=== PATIENT | male | born 1965 | race Caucasian/White ===

== ENCOUNTER 2020-09-05 16:30 | Inpatient (IN) ==
[2020-09-05 16:59] LABS: Bilirubin,Urine Negative (Negative); Blood,Urine Negative (Negative); Clarity,Urine Clear (Clear); Color,Urine Yellow (Yellow); Glucose,Urine (UA) Normal (Normal); Ketones,Urine Negative (Negative); Leukocyte Esterase,Urine Negative (Negative); Nitrite,Urine Negative (Negative); PH,Urine 5.5 pH Units (5.0-8.0); Protein,Urine Trace mg/dL (Neg-Trace); Specific Gravity,Urine > 1.030 (1.010-1.025); Urobilinogen,Urine Normal (Normal)
[2020-09-05 17:18] LABS: Amphetamine Screen,Urine Negative ng/mL (Cutoff=1000); Barbiturate Screen,Urine Negative ng/mL (Cutoff=200); Benzodiazepines Screen,Urine Negative ng/mL (Cutoff=200); Cannabinoid Screen,Urine Positive ng/mL (Cutoff = 50); Cocaine Screen,Urine Negative ng/mL (Cutoff= 300); Opiate Screen,Urine Negative ng/mL (Cutoff=300); Phencyclidine Screen,Urine Negative ng/mL (Cutoff=25)
[2020-09-05] MEDS ORDERED: Ondansetron ODT 4 MG TAB.RAPDIS SL ONE (17:19)
[2020-09-05] MEDS ORDERED: Ondansetron ODT 4 MG TAB.RAPDIS ONE (17:50)
[2020-09-05] MEDS ORDERED: Lidocaine 1% 20 ML MDV INFILT ONE (18:58)
[2020-09-05] MEDS ORDERED: Lidocaine -MPF 1% 2 ML VIAL INFILT STA (19:01)
[2020-09-05 19:37] LABS: Basophils % 0.6 %; Eosinophils % 1.6 %; Mean Corpuscular Hemoglobin 30.3 pg (28.0-33.3); Red Cell Distribution Width 14.2 % (11.5-14.5)
[2020-09-05 19:39] LABS: Basophils # 0.1 K/mcL (0.0-0.2); Eosinophils # 0.1 K/mcL (0.0-0.6); Hematocrit 48.9 % (37.5-50.1); Immature Granulocytes % 0.1 % (0-4); Immature Platelets 2.4 % (1.1-6.1); Lymphocytes # 2.8 K/mcL (0.6-4.6); Lymphocytes % 30.9 %; Mean Corpuscular HGB Conc 32.7 g/dL (31.6-35.5); Mean Corpuscular Volume 92.6 fL (83.0-100.0); Mean Platelet Volume 9.7 fL (9.4-12.4); Monocytes # 0.7 K/mcL (0.0-1.3); Monocytes % 7.8 %; Neutrophils # 5.3 K/mcL (1.6-8.9); Platelet Count 203 K/mcL (140-400); Red Blood Count 5.28 M/mcL (4.19-5.50); White Blood Count 8.9 K/mcL (4.3-11.1)
[2020-09-05 20:01] LABS: Platelet Estimate Normal (Normal)
[2020-09-05 20:59] LABS: BUN/Creatinine Ratio 27 (6-26); Blood Urea Nitrogen 16 mg/dL (6-20); Calcium 9.1 mg/dL (8.6-10.3); Carbon Dioxide 19 mEq/L (23-29); Chloride 103 mEq/L (98-107); Glucose 118 mg/dL (70-105); Osmolality,Calculated 280 (280-300); Potassium 3.9 mEq/L (3.5-5.1); Sodium 134 mEq/L (136-145); Thyroid Stimulating Hormone 0.967 mcIU/mL (0.340-5.600); eGFR For African Americans > 60 (> 60); eGFR For Non-African Americans > 60 (> 60)
[2020-09-05 21:54] LABS: Acetaminophen < 10 mcg/mL (10-20); Alanine Aminotransferase 31 Units/L (7-52); Albumin 3.9 g/dL (3.5-5.7); Alkaline Phosphatase 113 Units/L (34-104); Aspartate Amino Transferase 18 Units/L (13-39); Bilirubin,Direct 0.1 mg/dL (0.0-0.2); Bilirubin,Indirect 0.4 mg/dL (0.0-1.0); Bilirubin,Total 0.5 mg/dL (0.3-1.0); Ethanol < 10 mg/dL (Less than 10); Globulin 4.1 g/dL (2.4-3.5); Salicylate < 2.5 mg/dL (15.0-30.0)
[2020-09-06] MEDS ORDERED: Haloperidol Lactate 5 MG/ML VIAL IM PRN (00:08)
[2020-09-06] MEDS ORDERED: *HR* LORazepam 2 MG/ML VIAL IM PRN (00:08)
[2020-09-06] MEDS ORDERED: *HR* LORazepam 1 MG TABLET PO PRN (00:08)
[2020-09-06] MEDS ORDERED: Mag Hydrox/Al Hydrox/Simeth 30 ML UDC PO PRN (00:08)
[2020-09-06] MEDS ORDERED: haloperidoL 5 MG TABLET PO PRN (00:08)
[2020-09-06] MEDS ORDERED: MOM Conc 10 ML UD.LIQ PO PRN (00:08)
[2020-09-06] MEDS: traZODone 50 MG TABLET PO SCH (00:59)
[2020-09-06] MEDS: risperiDONE 1 MG TABLET PO SCH ×2 (01:00→08:59)
[2020-09-06] MEDS: Gabapentin 400 MG CAPSULE PO SCH ×3 (01:00→15:00)
[2020-09-06] MEDS: Nicotine 21 MG PATCH.TD24 TD SCH ×2 (01:04→09:00)
[2020-09-06] MEDS: QUEtiapine Fumarate 100 MG TABLET PO SCH (11:09)
[2020-09-06] MEDS ORDERED: QUEtiapine Fumarate 100 MG TABLET PO SCH (21:00)
[2020-09-07] MEDS: Gabapentin 400 MG CAPSULE PO SCH ×2 (00:49→11:28)
[2020-09-07] MEDS: traZODone 50 MG TABLET PO SCH ×2 (04:48→21:04)
[2020-09-07] MEDS: QUEtiapine Fumarate 100 MG TABLET PO SCH ×2 (11:28→21:04)
[2020-09-07] MEDS: Nicotine 21 MG PATCH.TD24 TD SCH (12:00)
[2020-09-07] MEDS: *HR* Buprenorphine HCl 8 MG TAB.SUBL SL SCH (12:01)
[2020-09-07] MEDS ORDERED: *HR* Buprenorphine HCl 8 MG TAB.SUBL SL SCH (15:00)
[2020-09-07] MEDS: Gabapentin 300 MG CAPSULE PO SCH ×2 (15:13→21:04)
[2020-09-08] MEDS: Gabapentin 300 MG CAPSULE PO SCH ×3 (08:46→21:05)
[2020-09-08] MEDS: QUEtiapine Fumarate 100 MG TABLET PO SCH (08:46)
[2020-09-08] MEDS: *HR* Buprenorphine HCl 8 MG TAB.SUBL SL SCH (08:47)
[2020-09-08] MEDS: Nicotine 21 MG PATCH.TD24 TD SCH (09:51)
[2020-09-08] MEDS ORDERED: QUEtiapine Fumarate 100 MG TABLET PO ONE (20:56)
[2020-09-08] MEDS ORDERED: QUEtiapine Fumarate 100 MG TABLET PO SCH (21:00)
[2020-09-08] MEDS: traZODone 50 MG TABLET PO SCH (21:05)
[2020-09-09] MEDS ORDERED: QUEtiapine Fumarate 100 MG TABLET PO SCH (09:00)
[2020-09-09] MEDS: *HR* Buprenorphine HCl 8 MG TAB.SUBL SL SCH (09:14)
[2020-09-09] MEDS: Gabapentin 300 MG CAPSULE PO SCH (09:16)
[2020-09-09] MEDS: Nicotine 21 MG PATCH.TD24 TD SCH (09:31)
[2020-09-09] MEDS ORDERED: *HR* Buprenorphine HCl 8 MG TAB.SUBL SL SCH (10:36)
[2020-09-09 12:06] LABS: Mean Platelet Volume 10.2 fL (9.4-12.4); Red Cell Distribution Width 13.5 % (11.5-14.5)
[2020-09-09 12:08] LABS: Basophils # 0.1 K/mcL (0.0-0.2); Eosinophils # 0.2 K/mcL (0.0-0.6); Eosinophils % 3.1 %; Hematocrit 47.1 % (37.5-50.1); Hemoglobin 16.1 g/dL (12.9-16.9); Immature Granulocytes % 0.7 % (0-4); Immature Platelets 4.1 % (1.1-6.1); Lymphocytes # 2.6 K/mcL (0.6-4.6); Mean Corpuscular HGB Conc 34.2 g/dL (31.6-35.5); Mean Corpuscular Hemoglobin 30.2 pg (28.0-33.3); Mean Corpuscular Volume 88.4 fL (83.0-100.0); Monocytes # 0.8 K/mcL (0.0-1.3); Monocytes % 11.3 %; Neutrophils # 3.3 K/mcL (1.6-8.9); Platelet Count 190 K/mcL (140-400); Red Blood Count 5.33 M/mcL (4.19-5.50); Segmented Neutrophils % 46.9 %
[2020-09-09 12:14] LABS: Platelet Estimate Normal (Normal)
[2020-09-09 12:50] LABS: Alanine Aminotransferase 26 Units/L (7-52); Albumin 3.5 g/dL (3.5-5.7); Albumin/Globulin Ratio 0.8 (1.1-2.2); Alkaline Phosphatase 109 Units/L (34-104); Aspartate Amino Transferase 26 Units/L (13-39); BUN/Creatinine Ratio 26 (6-26); Bilirubin,Total 0.4 mg/dL (0.3-1.0); Blood Urea Nitrogen 20 mg/dL (6-20); Calcium 9.3 mg/dL (8.6-10.3); Carbon Dioxide 24 mEq/L (23-29); Chloride 104 mEq/L (98-107); Globulin 4.4 g/dL (2.4-3.5); Glucose 111 mg/dL (70-105); Osmolality,Calculated 283 (280-300); Potassium 4.8 mEq/L (3.5-5.1); Sodium 135 mEq/L (136-145); Thyroid Stimulating Hormone 0.455 mcIU/mL (0.340-5.600); Total Protein 7.9 g/dL (6.4-8.9); eGFR For African Americans > 60 (> 60); eGFR For Non-African Americans > 60 (> 60)
[2020-09-09] MEDS: *HR* Buprenorphine HCl 2 MG SUBLINGUAL TABLET SL SCH (13:33)
[2020-09-09] MEDS: ARIPiprazole 5 MG TABLET PO SCH (20:55)
[2020-09-09] MEDS: traZODone 50 MG TABLET PO SCH (20:55)
[2020-09-10] MEDS: Nicotine 21 MG PATCH.TD24 TD SCH (11:00)
[2020-09-10] MEDS: *HR* Buprenorphine HCl 2 MG SUBLINGUAL TABLET SL SCH ×2 (14:08→16:04)
[2020-09-10] MEDS: ARIPiprazole 5 MG TABLET PO SCH (21:14)
[2020-09-10] MEDS: traZODone 50 MG TABLET PO SCH (21:14)
[2020-09-11] MEDS: *HR* Buprenorphine HCl 8 MG TAB.SUBL SL SCH (08:59)
[2020-09-11] MEDS: Nicotine 21 MG PATCH.TD24 TD SCH (08:59)
[2020-09-11] MEDS: hydrOXYzine pamoate 25 MG CAPSULE PO PRN (14:05)
[2020-09-11] MEDS: *HR* Buprenorphine HCl 2 MG SUBLINGUAL TABLET SL SCH (16:05)
[2020-09-11] MEDS: traZODone 50 MG TABLET PO SCH (20:24)
[2020-09-11] MEDS: ARIPiprazole 10 MG TABLET PO SCH (20:24)
[2020-09-12] MEDS: Acetaminophen 325 MG TABLET PO PRN ×2 (05:15→14:04)
[2020-09-12] MEDS: *HR* Buprenorphine HCl 8 MG TAB.SUBL SL SCH (11:20)
[2020-09-12] MEDS: Nicotine 21 MG PATCH.TD24 TD SCH (11:20)
[2020-09-12] MEDS: hydrOXYzine pamoate 25 MG CAPSULE PO PRN (14:47)
[2020-09-12] MEDS: *HR* Buprenorphine HCl 2 MG SUBLINGUAL TABLET SL SCH (16:02)
[2020-09-12] MEDS: ARIPiprazole 10 MG TABLET PO SCH (20:38)
[2020-09-12] MEDS: traZODone 50 MG TABLET PO SCH (20:38)
[2020-09-13] MEDS: hydrOXYzine pamoate 25 MG CAPSULE PO PRN ×2 (08:07→16:34)
[2020-09-13] MEDS: *HR* Buprenorphine HCl 8 MG TAB.SUBL SL SCH (08:41)
[2020-09-13] MEDS: Nicotine 21 MG PATCH.TD24 TD SCH (09:37)
[2020-09-13] MEDS: *HR* Buprenorphine HCl 2 MG SUBLINGUAL TABLET SL SCH (16:09)
[2020-09-13] MEDS: risperiDONE 1 MG TABLET PO SCH (20:50)
[2020-09-13] MEDS: traZODone 50 MG TABLET PO SCH (20:50)
[2020-09-14] MEDS: Nicotine 21 MG PATCH.TD24 TD SCH (08:40)
[2020-09-14] MEDS: risperiDONE 1 MG TABLET PO SCH ×2 (08:41→21:33)
[2020-09-14] MEDS: *HR* Buprenorphine HCl 8 MG TAB.SUBL SL SCH (08:41)
[2020-09-14] MEDS: *HR* Buprenorphine HCl 2 MG SUBLINGUAL TABLET SL SCH (17:51)
[2020-09-14] MEDS: hydrOXYzine pamoate 25 MG CAPSULE PO PRN (18:56)
[2020-09-14] MEDS: traZODone 50 MG TABLET PO SCH (21:32)
[2020-09-15] MEDS: Acetaminophen 325 MG TABLET PO PRN (05:27)
[2020-09-15] MEDS: risperiDONE 1 MG TABLET PO SCH ×2 (10:12→20:24)
[2020-09-15] MEDS: *HR* Buprenorphine HCl 8 MG TAB.SUBL SL SCH (10:12)
[2020-09-15] MEDS: Nicotine 21 MG PATCH.TD24 TD SCH (10:13)
[2020-09-15] MEDS: *HR* Buprenorphine HCl 2 MG SUBLINGUAL TABLET SL SCH (16:42)
[2020-09-15] MEDS: traZODone 50 MG TABLET PO SCH (20:24)
[2020-09-15] MEDS: hydrOXYzine pamoate 25 MG CAPSULE PO PRN (20:24)
[2020-09-16] MEDS: risperiDONE 1 MG TABLET PO SCH (08:44)
[2020-09-16] MEDS: *HR* Buprenorphine HCl 8 MG TAB.SUBL SL SCH (08:45)
[2020-09-16 09:00] VITALS: BP 111/77
[2020-09-16] MEDS: Nicotine 21 MG PATCH.TD24 TD SCH (10:29)
== END 2020-09-16 13:30 | disposition home or self-care (01) | DRG 750 ==
LOC: EMEROOARM 16:30 → 1ANU 23:55
PROVIDERS: ADMIT Psychiatry & Neurology Psychiatry; ATTEND Psychiatry & Neurology Psychiatry